=== PATIENT | female | born 1950 | race Caucasian/White ===

== ENCOUNTER → 2020-07-16 | Outpatient (CLI) | payer MEDICARE, BC | LOC: MC.RAD 10:45 | DX: Z12.31 Encounter for screening mammogram for malignant neoplasm of breast (principal); Z90.12 Acquired absence of left breast and nipple ==

== ENCOUNTER 2020-09-10 14:38 | Inpatient (IN) | payer MEDICARE, BC ==
[~2020-09-10] VITALS: Ht 175.3 cm; Wt 81.7 kg
[2020-09-10] VITALS (255 sets, daily range): BP systolic 64–99; BP diastolic 43–70; PULSE 56–119; TEMP 97.6–98; O2SAT 80–100
--- NOTE | 2020-09-10 14:55 | NUR ---
Patient to room from CT via wheelchair. Transfers self from wheelchair to bed. Gait slow and steady. Assist in changing into gown. Alert and oriented x4. Patient says that she does get dizzy with fast position changes. Skin pale. Oriented to room.
[2020-09-10] MEDS ORDERED: VASOTEC20 MG PO (14:59)
[2020-09-10] MEDS ORDERED: GLEEVEC400 MG PO (15:00)
[2020-09-10] MEDS ORDERED: ZOLOFT 50MG50 MG PO (15:00)
[2020-09-10] MEDS ORDERED: SYNTHROID0.175 MG PO (15:01)
[2020-09-10] MEDS ORDERED: COREG 3.123.125 MG/T PO (15:02)
[2020-09-10] MEDS ORDERED: COREG 6.256.25 MG/TA PO (15:03)
[2020-09-10] MEDS ORDERED: BUMEX0.5 MG PO (15:04)
[2020-09-10] MEDS ORDERED: CALCIUM 600-D 61 TAB PO (15:05)
[2020-09-10] MEDS ORDERED: KLOR-CON SPRIN10 MEQ PO (15:05)
[2020-09-10] MEDS ORDERED: PROLIA60 MG/ML SQ (15:07)
[2020-09-10] MEDS ORDERED: ALDACTONE 25MG25 M1 PO (15:08)
--- NOTE | 2020-09-10 15:30 | NUR ---
Patient to be transferred to [facility] Room 1. Report called to LUIS Whitlock. Echo is in room at this time performing echo.
--- NOTE | 2020-09-10 15:31 | NUR ---
Telephone report recieved from LUIS Echavarria
--- NOTE | 2020-09-10 15:55 | NUR ---
Patient assisted to [facility] 1 via wheelchair by this nurse. Patient assisted into bed. Care handed over to LUIS Whitlock.
--- NOTE | 2020-09-10 16:00 | NUR ---
AJ Echavarria in room, notified of BP: 77/62(67)
[2020-09-10 16:03] LABS: BASO % 0.4 % (0.0-2.0); EOS % 0.2 % (0-4.0); GRAN # 4.2 (1.4-6.5); GRAN % 79.6 % (42.2-75.2); LYMPH # 0.6 (1.2-3.4); LYMPH % 11.8 % (20.0-51.0); MEAN CELL VOLUME 106 fl (80.0-100.0); MEAN CORPUSCULAR HGB CONC 31 g/dl (33.0-37.0); MEAN PLATELET VOLUME 11.3 fl (7.4-10.4); MONO # 0.4 (0.1-0.6); MONO % 7.6 % (1.7-9.3); PLATELET COUNT 148 K/mm3 (130-400); RED BLOOD COUNT 2.22 M/mm3 (4.10-5.30); REDCELL DISTRIBUTION WIDTH-CV 15.4 % (11.5-14.5)
[2020-09-10 16:06] LABS: HEMATOCRIT 23.6 % (37.0-47.0); HEMOGLOBIN 7.4 g/dl (12.5-16.0); MEAN CORPUSCULAR HEMOGLOBIN 33 pg (27.0-31.0)
[2020-09-10 16:18] LABS: INR 1.6 (0.8-3.0); PROTHROMBIN TIME 18.5 SECONDS (9.7-12.8)
[2020-09-10 16:20] LABS: ALBUMIN 3.3 gm/dL (3.5-5.0); BILIRUBIN,TOTAL 0.8 mg/dL (0.0-1.0); C-REACTIVE PROTEIN 1.7 mg/dL (0.0-0.9); CALCIUM 9.5 mg/dL (8.4-10.2); CREATININE, serum 4.93 (0.52-1.25); MAGNESIUM 2.6 mg/dL (1.6-2.3); PHOSPHOROUS 5.7 mg/dL (2.5-4.5); TOTAL PROTEIN 5.6 gm/dL (6.4-8.2)
[2020-09-10 16:34] LABS: POTASSIUM 6.5 mmol/L (3.4-5.0)
--- NOTE | 2020-09-10 16:37 | NUR ---
Receive call from lab for a critical potassium level. Level called to AJ Echavarria.
[2020-09-10 16:40] LABS: ERYTHROCYTE SEDIMENTATION RATE 5 mm/hr (0-30)
--- NOTE | 2020-09-10 16:53 | NUR ---
MD Madie called for Dobutamine clarification orders, as AJ Echavarria informed me she, MD Madie wanted a Dobutamine gtt. MD Madie notifed of hypotension and AFib RVR. MD Madie also stated she does not want Heparin gtt d/t her hemoglobin, and does not want amiodarone, cardizem or dobutamine. MD Johnny in room with pt at 1700
--- NOTE | 2020-09-10 18:08 | NUR ---
MD Preeti here for central line placement. Consent obtained. TimeOut completed, all present in agreement.
--- NOTE | 2020-09-10 18:20 | NUR ---
Pt tolerated central line insertion well. MD Preeti gave the OK to begin using central line for vasopresors Pt's daughter Renee called in and updated - all questions answered - no concerns at this time
--- NOTE | 2020-09-10 18:25 | NUR ---
Lab called for repeat labs after IV insulin and Dextrose fluid
--- NOTE | 2020-09-10 18:47 | NUR ---
Lab re-called for lab draw and culture orders
--- NOTE | 2020-09-10 19:16 | NUR ---
Pt's primary contact: Renee Davis [phone]
--- NOTE | 2020-09-10 20:00 | NUR ---
Assessment complete. Pt is AXO X3, denies having any pain at this time. Breathing is even and unlabored on room air. SHe is resting quietly in the bed watching TV at this time and she denies further needs. Call light within reach.
[2020-09-10 20:22] LABS: RETIC # 0.03 M/mm3 (0.02-0.16); RETIC % 1.3 % (0.5-3.52)
[2020-09-10 20:32] LABS: CALCIUM 9.5 mg/dL (8.4-10.2); CREATININE, serum 4.88 (0.52-1.25); POTASSIUM 5.6 mmol/L (3.4-5.0)
[2020-09-10 20:34] LABS: IRON,SERUM 72 ug/dL (35-150)
[2020-09-10 20:43] LABS: TOTAL IRON BINDING CAPACITY 353 ug/dL (265-497)
[2020-09-10 22:15] LABS: COLLECTION METHOD CLEAN CATCH
[2020-09-10 22:31] LABS: CALCIUM 9.2 mg/dL (8.4-10.2); CREATININE, serum 4.88 (0.52-1.25)
[2020-09-10 22:35] LABS: POTASSIUM 5.8 mmol/L (3.4-5.0)
[2020-09-10 22:46] LABS: AMORPHOUS CRYSTAL Present /uL; MUCOUS Present /lpf; PH 5 (5-8); URINE APPEARANCE Turbid; URINE BACTERIA Rare /hpf; URINE BILIRUBIN Negative (NEGATIVE); URINE BLOOD 2+ (NEGATIVE); URINE COLOR Amber; URINE GLUCOSE Negative (NEGATIVE); URINE KETONE Negative (NEGATIVE); URINE LEUKOCYTE ESTERASE Negative (NEGATIVE); URINE NITRATE Negative (NEGATIVE); URINE PROTEIN(semi-quant) 2+ (NEGATIVE); URINE RBC 20-50 /hpf; URINE UROBILINOGEN Negative (NEGATIVE)
[2020-09-11] VITALS (1166 sets, daily range): BP systolic 70–119; BP diastolic 38–77; PULSE 64–126; TEMP 97–98; O2SAT 75–100
[2020-09-11 02:09] LABS: CALCIUM 9.8 mg/dL (8.4-10.2); CREATININE, serum 4.91 (0.52-1.25)
[2020-09-11 04:09] LABS: BASO % 0.1 % (0.0-2.0); EOS % 0.3 % (0-4.0); GRAN # 5.1 (1.4-6.5); GRAN % 75.6 % (42.2-75.2); LYMPH # 0.7 (1.2-3.4); LYMPH % 11.1 % (20.0-51.0); MEAN CELL VOLUME 103 fl (80.0-100.0); MEAN CORPUSCULAR HGB CONC 32 g/dl (33.0-37.0); MEAN PLATELET VOLUME 11.2 fl (7.4-10.4); MONO # 0.8 (0.1-0.6); MONO % 12.6 % (1.7-9.3); PLATELET COUNT 159 K/mm3 (130-400); RED BLOOD COUNT 2.48 M/mm3 (4.10-5.30); REDCELL DISTRIBUTION WIDTH-CV 15.5 % (11.5-14.5)
[2020-09-11 04:16] LABS: HEMATOCRIT 25.5 % (37.0-47.0); HEMOGLOBIN 8.1 g/dl (12.5-16.0); MEAN CORPUSCULAR HEMOGLOBIN 33 pg (27.0-31.0)
[2020-09-11 04:20] LABS: ALBUMIN 3.2 gm/dL (3.5-5.0); BILIRUBIN,TOTAL 1.1 mg/dL (0.0-1.0); CALCIUM 9.8 mg/dL (8.4-10.2); CREATININE, serum 4.91 (0.52-1.25); MAGNESIUM 2.4 mg/dL (1.6-2.3); PHOSPHOROUS 5.4 mg/dL (2.5-4.5); POTASSIUM 5.4 mmol/L (3.4-5.0); TOTAL PROTEIN 5.5 gm/dL (6.4-8.2)
--- NOTE | 2020-09-11 07:00 | NUR ---
BEDSIDE REPORT RECEIVED FROM LUIS APARICIO
--- NOTE | 2020-09-11 07:07 | NUR ---
Bedside shift report given to LUIS Hendricks.
--- NOTE | 2020-09-11 10:17 | NUR ---
Initial visit; Patient thanked Information Management Specialist for looking in on her and offering spiritual care.
--- NOTE | 2020-09-11 11:00 | NUR ---
WAITING ON ULTRASOUND TO HELP DETERMINE WHEN THE THORACENTESIS WILL BE.
--- NOTE | 2020-09-11 11:48 | NUR ---
Cher Mccollum LMSW and Sakina Modi RN met with patient in her room to discuss goals of care. Pt reports that her heart has been not functioning well for years and that she had known her kidneys weren't the greatest for several years but that when she got a new PCP, she was told that she had several fairly serious issues that would need to be dealt with. At this point she is telling us that she wants to be aggressive with her care to take care of things with her health. She did have some questions about dialysis but again at this point we don't know if dialysis will be needed or not. She is building a new house in [place] and the landscapers are coming today. It is almost done and she is very much looking forward to living there. She wants to spend time with her grandchildren and to be able to care for her 90yo mother. Teresa clearly states that she is not a medical expert and she trusts her care providers to tell her what is wrong and what to do about it. She reports that she does have advanced directives completed and she will contact her son to send them to Cher Mccollum LMSW. We talked about aggressive, vs supportive, vs comfort care as far as goals are concerned. At this point she is very much wanting to be aggressive in her care until there is a clear reason not to be and then she will rethink her goals. She does understand that the kidneys and heart have to work together to maintain a balance and that if one is not able to do it's job then the other organ has to work harder--when both aren't working well, then the problem grows. She will keep us advised but currently is wanting aggressive care.
--- NOTE | 2020-09-11 14:42 | NUR ---
ticket worker met with patient and Sakina Modi to complete initial intake as well as a Palliative Care visit. Patient stated that she lives alone and has a local daughter that is supportive. Patient's children are spread out among [place] and her elderly mother is planning to visit. Patient shares the past three years her family has had losses of her father and . Patient has been building a home in [place] and it is near completion. Patient states her primary care provider is Dr Banuelos and that she has advance directives. Patient will have her son email her advance directives to this heating and ventilating worker. Sakina shares options of care and patient states that at this time, she and her family wish for aggressive treatment to make her better. We discussed dialysis as patient is being evaluated for the possibility. Case management will continue to follow and assist with securing a safe discharge plan.
[2020-09-11 15:01] LABS: PLEURAL FLUID RBC 2000 /mm3 (0-0); PLEURAL FLUID WBC 658 /mm3
[2020-09-11 15:22] LABS: GLUCOSE,PLEURAL FLUID 85 mg/dL
[2020-09-11 15:25] LABS: PLEURAL FLUID APPEARANCE HAZY; PLEURAL FLUID COLOR YELLOW
--- NOTE | 2020-09-11 15:30 | NUR ---
THORACENTESIS COMPLETE. PATIENT EXPERIENCED N/V POST THORA. ZOFRAN GIVEN. SHE IS MUCH BETTER NOW. WILL CONTINUE TO MONITOR.
--- NOTE | 2020-09-11 16:00 | NUR ---
WEANING DOWN LEVOPHED TODAY. STILL MAKING MINIMAL URINE OUTPUT.
--- NOTE | 2020-09-11 17:50 | NUR ---
PASCUAL AVENDANO RECEIVED FROM DR. MAYNARD FOR ABDOMINAL PAIN.
--- NOTE | 2020-09-11 19:00 | NUR ---
BEDSIDE REPORT GIVEN TO LUIS APARICIO
--- NOTE | 2020-09-11 20:00 | NUR ---
Assessment complete. Pt is AXO X3, denies having any pain at this time. Breathing is even and unlabored on room air. Pt is sitting up in the bed working on eating a sandwich at this time and she denies further needs. Call light within reach.
[2020-09-11 22:28] LABS: URIC ACID 14.2 mg/dL (2.5-6.2)
[2020-09-12] VITALS (870 sets, daily range): BP systolic 65–140; BP diastolic 41–98; PULSE 68–100; TEMP 97.6–98.2; O2SAT 70–100
--- NOTE | 2020-09-12 07:23 | NUR ---
Bedside shift report given to LUIS Lyle.
--- NOTE | 2020-09-12 08:00 | NUR ---
Report recieved from Kevin RN, all questions answered. Patient found sleeping in bed, repondeds to verbal stimuli. Patient oriented x4. Heart sounds irregular, lung sounds diminished, bowel sounds audible. Abdomen distended. Patient denies any pain or nausea at this time. Reports breathing feels much better. IV drips going to left IJ without difficulty. Pérez in place draining korina urine. Vital signs stable at this time. All safety maintained, will continue to monitor.
[2020-09-12 08:08] LABS: BASO % 0.2 % (0.0-2.0); EOS # 0.1 (0.0-0.7); EOS % 1.2 % (0-4.0); GRAN # 6.9 (1.4-6.5); GRAN % 81.8 % (42.2-75.2); LYMPH # 0.6 (1.2-3.4); LYMPH % 7.1 % (20.0-51.0); MEAN CELL VOLUME 101 fl (80.0-100.0); MEAN CORPUSCULAR HGB CONC 33 g/dl (33.0-37.0); MEAN PLATELET VOLUME 11.2 fl (7.4-10.4); MONO # 0.8 (0.1-0.6); MONO % 9.6 % (1.7-9.3); PLATELET COUNT 158 K/mm3 (130-400); RED BLOOD COUNT 3.13 M/mm3 (4.10-5.30); REDCELL DISTRIBUTION WIDTH-CV 15.3 % (11.5-14.5)
--- NOTE | 2020-09-12 08:15 | NUR ---
entry level automotive technician at bedside to perform paracentesis. Consent signed by patient. Will continue to monitor.
[2020-09-12 08:17] LABS: CALCIUM 8.1 mg/dL (8.4-10.2); CREATININE, serum 4.93 (0.52-1.25); MAGNESIUM 2.1 mg/dL (1.6-2.3); PHOSPHOROUS 5.3 mg/dL (2.5-4.5); POTASSIUM 4.2 mmol/L (3.4-5.0)
[2020-09-12 08:26] LABS: HEMATOCRIT 31.6 % (37.0-47.0); HEMOGLOBIN 10.3 g/dl (12.5-16.0); MEAN CORPUSCULAR HEMOGLOBIN 33 pg (27.0-31.0)
--- NOTE | 2020-09-12 09:57 | NUR ---
I went down to talk with patient again today. She reports that she is feeling better after having fluid removed from her chest and abdomen but still feeling effects of paracentesis which was just done less than 30 minutes ago. She reports that her phone needs to be charged and then she plans on talking with her family. We have not recieved her DPOA-HC but she reports that they will send it to us. She continues to maintain a very positive attitude about her situation--that everything will work out. She did ask that if she made her self a DNR if her family could then change that. I reinforced to her that if that is her decision, then we would expect that her family would be supportive of her decision and we would not expect them to change her status. Rather we would be turning to them if she couldn't make her own decision regarding other actions that might be available to her vs keeping her comfortable and allowing nature to take its course. She reinforced to me that she plans to talk with her family later today about this kind of thing.
[2020-09-12 10:12] LABS: PERITONEAL FLUID RBC 52000 /mm3 (0-0)
--- NOTE | 2020-09-12 12:00 | NUR ---
Paracentisis site clean dry intact at this time. No complaints will continue to monitor.
--- NOTE | 2020-09-12 16:26 | NUR ---
Plastic Maker contacted patient's daughter, Renee and left a message.
[2020-09-12 18:18] LABS: CORTISOL, AM (0800) 16 ug/dL (3-20)
--- NOTE | 2020-09-12 19:25 | NUR ---
RECEIVED REPORT FROM LUIS HUGHES. PATIENT RESTING IN BED WITH EYES OPEN. SEE GTT TITRATION FLOWSHEET. LEONARD CATHETER PATENT AND DRAINING TO GRAVITY. CALL LIGHT WITHIN REACH. VSS.
--- NOTE | 2020-09-12 19:25 | NUR ---
Report given to Brenda SMITH.
[2020-09-13] VITALS (912 sets, daily range): BP systolic 82–133; BP diastolic 48–64; PULSE 80–92; TEMP 97.8; O2SAT 74–100
[2020-09-13 07:16] LABS: MEAN CELL VOLUME 99 fl (80.0-100.0); MEAN CORPUSCULAR HGB CONC 34 g/dl (33.0-37.0); MEAN PLATELET VOLUME 11.4 fl (7.4-10.4); PLATELET COUNT 124 K/mm3 (130-400); RED BLOOD COUNT 2.53 M/mm3 (4.10-5.30); REDCELL DISTRIBUTION WIDTH-CV 15.1 % (11.5-14.5)
[2020-09-13 07:23] LABS: ALBUMIN 2.4 gm/dL (3.5-5.0); BILIRUBIN,TOTAL 0.6 mg/dL (0.0-1.0); CALCIUM 7.6 mg/dL (8.4-10.2); CREATININE, serum 4.07 (0.52-1.25); HEMATOCRIT 25.1 % (37.0-47.0); HEMOGLOBIN 8.5 g/dl (12.5-16.0); MEAN CORPUSCULAR HEMOGLOBIN 34 pg (27.0-31.0); POTASSIUM 3.1 mmol/L (3.4-5.0); TOTAL PROTEIN 4.3 gm/dL (6.4-8.2)
[2020-09-13 07:46] LABS: BAND 10 % (0-10); NEUTROPHILS 87 % (42.0-75.2); OVALOCYTES 2+; PLATELET ESTIMATE NORMAL (NORMAL); SCHISTOCYTES 1+
--- NOTE | 2020-09-13 21:25 | NUR ---
Assessment complete and charted. TLC to left IJ drainage present. Sterile dressing change complete. Patient returned to bed. Denies needs. Call light in reach.
[2020-09-14] VITALS (575 sets, daily range): BP systolic 91–132; BP diastolic 43–74; PULSE 79–93; TEMP 98–98.2; O2SAT 74–100
--- NOTE | 2020-09-14 00:13 | NUR ---
Assessment complete and charted at this time. Denies pain. Denies needs. Call light in reach.
--- NOTE | 2020-09-14 04:56 | NUR ---
Assessment complete and charted. Denies needs at this time. Call light in reach.
--- NOTE | 2020-09-14 06:36 | NUR ---
Patient had uneventful night. Remains on dobutamine and amio gtts. Up to chair this AM. Bath complete. Call light in reach.
--- NOTE | 2020-09-14 07:14 | NUR ---
Report given to LUIS Briggs
[2020-09-14 07:15] LABS: MEAN CELL VOLUME 101 fl (80.0-100.0); MEAN CORPUSCULAR HGB CONC 33 g/dl (33.0-37.0); MEAN PLATELET VOLUME 10.7 fl (7.4-10.4); PLATELET COUNT 108 K/mm3 (130-400); RED BLOOD COUNT 2.26 M/mm3 (4.10-5.30); REDCELL DISTRIBUTION WIDTH-CV 15.3 % (11.5-14.5)
[2020-09-14 07:27] LABS: ALBUMIN 2.6 gm/dL (3.5-5.0); BILIRUBIN,TOTAL 0.6 mg/dL (0.0-1.0); CALCIUM 7.6 mg/dL (8.4-10.2); CREATININE, serum 3.43 (0.52-1.25); TOTAL PROTEIN 4.6 gm/dL (6.4-8.2)
[2020-09-14 07:35] LABS: HEMATOCRIT 22.8 % (37.0-47.0); HEMOGLOBIN 7.5 g/dl (12.5-16.0); MEAN CORPUSCULAR HEMOGLOBIN 33 pg (27.0-31.0)
[2020-09-14 07:45] LABS: ANISOCYTOSIS 1+; BAND 5 % (0-10); LYMPHOCYTE 3 % (20.0-51.0); NEUTROPHILS 92 % (42.0-75.2); PLATELET ESTIMATE DECREASED (NORMAL)
[2020-09-14 07:46] LABS: OVALOCYTES 2+; SCHISTOCYTES 1+
--- NOTE | 2020-09-14 19:14 | NUR ---
Report given to LUIS Brown. Care relinquished at this time.
--- NOTE | 2020-09-14 20:00 | NUR ---
Assessment complete. Pt is AXO X3, denies having any pain at this time. Breathing is even and unlabored on room air. Pt helped back to the bed from the recliner with SBA. She is resting quietly in the bed at this time and she denies further needs. Call light within reach.
[2020-09-15] VITALS (562 sets, daily range): BP systolic 96–137; BP diastolic 42–91; PULSE 82–96; TEMP 97.4–98.9; O2SAT 79–99
--- NOTE | 2020-09-15 07:00 | NUR ---
RECEIVED REPORT FROM LUIS APARICIO. PT SLEEPING. CALL LIGHT WITHIN REACH. VSS. FC PATENT AND DRAINING TO GRAVITY.
[2020-09-15 07:39] LABS: CALCIUM 7.4 mg/dL (8.4-10.2); CREATININE, serum 2.71 (0.52-1.25); POTASSIUM 3.2 mmol/L (3.4-5.0)
--- NOTE | 2020-09-15 07:49 | NUR ---
Bedside shift report given to LUIS Valiente.
--- NOTE | 2020-09-15 08:50 | NUR ---
DR RUBIN AT BEDSIDE FOR ASSESSMENT. NEW ORDERS RECEIVED.
[2020-09-15 09:24] LABS: ALBUMIN 2.3 gm/dL (3.5-5.0); TOTAL PROTEIN 4.2 gm/dL (6.4-8.2)
[2020-09-15 09:38] LABS: BILIRUBIN UNCONJUGATED 0.2 mg/dL (0.0-1.1); BILIRUBIN,DIRECT 0.2 mg/dL (0.0-0.4); BILIRUBIN,TOTAL 0.5 mg/dL (0.0-1.0)
--- NOTE | 2020-09-15 10:45 | NUR ---
DR BARTON AT BEDSIDE FOR ASSESSMENT AND DISCUSSING POC WITH PT. DISCUSSED WITH PHYSICAIN ABOUT FC AND CENTRAL LINE DC. PHYSICIAN STATES IF PT HAS TO PERIPHRAL IV ACCESSES THEN OK TO DC CENTRAL LINE. AND PHYSICIAN STATES TO ASK NEPHROLOGY ABOUT DC FC. SPOKE WITH LUIS SINGH WITH DR LUIS AND SHE STATES WILL SPEAK TO DR LUIS AND GET BACK.
[2020-09-15] MEDS ORDERED: EVISTA 60MG60 MG/TAB PO ×2 (10:53→10:54)
[2020-09-15 12:15] LABS: MEAN CELL VOLUME 99 fl (80.0-100.0); MEAN CORPUSCULAR HGB CONC 33 g/dl (33.0-37.0); MEAN PLATELET VOLUME 10.8 fl (7.4-10.4); PLATELET COUNT 99 K/mm3 (130-400); REDCELL DISTRIBUTION WIDTH-CV 15.7 % (11.5-14.5)
[2020-09-15 12:19] LABS: HEMATOCRIT 20.8 % (37.0-47.0); HEMOGLOBIN 6.9 g/dl (12.5-16.0); MEAN CORPUSCULAR HEMOGLOBIN 33 pg (27.0-31.0)
[2020-09-15 12:36] LABS: BAND 2 % (0-10); LYMPHOCYTE 2 % (20.0-51.0); NEUTROPHILS 94 % (42.0-75.2); PLATELET ESTIMATE DECREASED (NORMAL)
[2020-09-15 12:37] LABS: HYPOCHROMIA 1+; OVALOCYTES 2+; SCHISTOCYTES 2+
--- NOTE | 2020-09-15 12:46 | NUR ---
REPORT GIVEN TO LUIS SAVAGE ON MEDICAL. PT TO TRANSFER TO [facility] VIA ON RA. ALL PERSONAL BELONGINGS SENT WITH PT.
--- NOTE | 2020-09-15 13:38 | NUR ---
Assistant Professor Of History met with patient to follow up on DPOA-HC and discharge plan. Patient states her son in law, J Luis (ph#[phone]) should have faxed it in. SW also discussed home health services with patient who is agreeable. SW provided Medicare.gov list of agencies and patient selected [facility]. DIANA contacted Santa at [facility] and faxed referral. DIANA then contacted J Luis and provided case management fax. J Luis states he will fax over a copy.
--- NOTE | 2020-09-15 13:50 | NUR ---
PT TRANSFERRED TO 318 AT THIS TIME
--- NOTE | 2020-09-15 14:36 | NUR ---
PT TO FLOOR @1400 FROM ICU. REPORT FROM CARIDAD SMITH.
[2020-09-15 21:53] LABS: ADRENOCORTICOTROPIC HORMONE 22 pg/mL (5-27)
[2020-09-16 03:46] VITALS: BP 106/53; PULSE 87; TEMP 98.2
--- NOTE | 2020-09-16 05:07 | NUR ---
PATIENT HAD DIFFICULTY GETTING TO SLEEP LAST NIGHT. PRN MELATONIN ADMINISTERED BUT DID NOT HELP PATIENT GET TO SLEEP. PATIENT STATED SHE HAS JUST HAD TROUBLE SLEEPING THE LAST COUPLE NIGHTS. PATIENT CALM, COOPERATIVE, AND VERY FRIENDLY. NO NEW ISSUES NOTED OR REPORTED BY PATIENT.
[2020-09-16 07:10] LABS: MEAN CELL VOLUME 101 fl (80.0-100.0); MEAN CORPUSCULAR HGB CONC 33 g/dl (33.0-37.0); MEAN PLATELET VOLUME 11.3 fl (7.4-10.4); PLATELET COUNT 93 K/mm3 (130-400); RED BLOOD COUNT 2.28 M/mm3 (4.10-5.30)
[2020-09-16 07:14] LABS: HEMOGLOBIN 7.5 g/dl (12.5-16.0); MEAN CORPUSCULAR HEMOGLOBIN 33 pg (27.0-31.0)
[2020-09-16 07:17] LABS: ALBUMIN 2.7 gm/dL (3.5-5.0); BILIRUBIN,TOTAL 0.5 mg/dL (0.0-1.0); CALCIUM 7.7 mg/dL (8.4-10.2); CREATININE, serum 2.34 (0.52-1.25); POTASSIUM 3.2 mmol/L (3.4-5.0)
[2020-09-16 07:36] VITALS: BP 109/60; PULSE 89; TEMP 98.2
[2020-09-16 07:52] LABS: BAND 1 % (0-10); LYMPHOCYTE 5 % (20.0-51.0); NEUTROPHILS 93 % (42.0-75.2); NUCLEATED RED BLOOD CELL 1 (0-6); OVALOCYTES 1+; PLATELET ESTIMATE DECREASED (NORMAL); SCHISTOCYTES 1+
--- NOTE | 2020-09-16 08:00 | NUR ---
PATIENT IS ALERT AND ORIENTED X3. VSS. NO COMPLAINTS OF PAIN OR N/V AT THIS TIME. MORNING MEDS ADMINISTERED. CENTRAL LINE DRESSING CHANGED- PATIENT REPORTED TAKING A 45 MINUTE SHOWER AFTER THE LAST ONE WAS REPLACED AND SEROSANGUINEOUS DRAINAGE AT THE SITE. LEONARD CATHETER D/C PROVIDER ORDERS. URINE IS NOTED TO BE BLOOD TINGED. PATIENT HANDLES BOTH PROCEDURES WELL. HEAD TO TOE ASSESSMENT COMPLETED. LUNG SOUNDS CLEAR. HEART SOUNDS REGULAR AND NORMAL. BOWEL SOUNDS ACTIVE IN ALL FOUR QUADRANTS. ABDOMEN SOFT. ALL PULSES ARE READILY PALPABLE. NO PITTING EDEMA NOTED. HOWEVER, PATIENT STATES THAT SHE FEELS IF HER LEGS FEEL A LITTLE MORE SWOLLEN THAN USUAL. PATIENT DENIES ANY PAIN OR TENDERNESS IN HER CALVES, THERE IS NO REDNESS OR ABNORMAL WARMTH IN HER CALVES. WILL CONTINUE TO MONITOR. BED IS LEFT IN THE LOWEST POSITION AND CALL LIGHT WITHIN REACH.
--- NOTE | 2020-09-16 08:00 | NUR ---
ASSESSED PATIENT WITH STUDENT, SEE CAPSTONE STUDENT CHARTING
--- NOTE | 2020-09-16 09:31 | NUR ---
Met with patient this morning after he shower. She reports that she is feeling much improved and is hopeful to be able to get to a point when she can go home. She is planning on following up with cancer physician in [place]--as her daughter lives there and is familiar with the facility. That is in her future but currently she just wants to be at home and watch her yard come together. She is still wanting to seek active treatment. I do not see a DPOA-HC on her chart yet, but it was to be faxed.
[2020-09-16 11:03] VITALS: BP 103/57; PULSE 85; TEMP 97.7
--- NOTE | 2020-09-16 13:48 | NUR ---
Follow-up visit; Patient doing well, she and Manager Reliability had a nice visit and Manager Reliability wished her well and offered God's blessings.
--- NOTE | 2020-09-16 14:37 | NUR ---
PATIENT CALLED OUT REPORTING LEFT IJ DRESSING IS SATURATED AGAIN. NURSING INQUIRED ABOUT DRAINAGE WITH AIVS WHO IS NOW AT BEDSIDE TO ASSESS CENTRAL LINE.
[2020-09-16 16:29] VITALS: BP 105/54; PULSE 90; TEMP 98.4
[2020-09-16 19:17] VITALS: BP 89/57; PULSE 95; TEMP 98.2
[2020-09-17 03:09] VITALS: BP 93/44; PULSE 88; TEMP 97.8
--- NOTE | 2020-09-17 05:46 | NUR ---
PATIENT REPORTED SHE SLEPT WELL FOR SEVERAL HOURS THROUGHOUT THE NIGHT. GI CONSULTED DUE TO STOOL OCCULT RESULTS. NO NEW ISSUES NOTED OR REPORTED BY PATIENT.
--- NOTE | 2020-09-17 07:52 | NUR ---
Patient resting in bed at this time. Patient denies any pain or discomfort. Patient denies any further needs. Will continue to monitor. Call light within reach.
[2020-09-17 08:03] LABS: EOS # 0.2 (0.0-0.7); EOS % 3.4 % (0-4.0); GRAN # 4.5 (1.4-6.5); GRAN % 72.4 % (42.2-75.2); LYMPH # 0.8 (1.2-3.4); LYMPH % 12.1 % (20.0-51.0); MEAN CELL VOLUME 103 fl (80.0-100.0); MEAN CORPUSCULAR HGB CONC 32 g/dl (33.0-37.0); MEAN PLATELET VOLUME 10.2 fl (7.4-10.4); MONO # 0.7 (0.1-0.6); MONO % 11.9 % (1.7-9.3); PLATELET COUNT 111 K/mm3 (130-400); RED BLOOD COUNT 2.33 M/mm3 (4.10-5.30); REDCELL DISTRIBUTION WIDTH-CV 16.1 % (11.5-14.5)
[2020-09-17 08:07] VITALS: BP 120/59; PULSE 88; TEMP 98.4
[2020-09-17 08:12] LABS: HEMOGLOBIN 7.6 g/dl (12.5-16.0); MEAN CORPUSCULAR HEMOGLOBIN 33 pg (27.0-31.0)
[2020-09-17 08:15] LABS: CALCIUM 7.7 mg/dL (8.4-10.2); CREATININE, serum 2.28 (0.52-1.25); POTASSIUM 3.1 mmol/L (3.4-5.0)
[2020-09-17 11:53] VITALS: BP 95/59; PULSE 91; TEMP 97.5
--- NOTE | 2020-09-17 13:20 | NUR ---
First visit from the home care assistant. No needs right now.
[2020-09-17] MEDS ORDERED: K-TAB20 PO (15:57)
[2020-09-17] MEDS ORDERED: ASPIRIN E.C. 8181 MG PO (16:12)
[2020-09-17] MEDS ORDERED: ZYLOPRIM 300MG300 MG PO (16:16)
[2020-09-17] MEDS ORDERED: PACERONE400 MG PO (16:17)
--- NOTE | 2020-09-17 16:34 | NUR ---
Cow Buyer contacted Santa at [facility] and faxed discharge orders and discharge summary.
[2020-09-17 17:00] VITALS: BP 99/61; PULSE 88; TEMP 98.2
--- NOTE | 2020-09-17 18:46 | NUR ---
Patient deemed fit for discharge. Education given patient denies any questions or concerns. IV DC'D with catheter intact and no signs of phlebitis. Patient denies any pain or discomfort. Patient's vitals stable; BP 99/61, Pulse 88, Resp 18, SPO2 97%, and Temp 98.2. Patient escorted from building by [facility] staff.
== END 2020-09-17 17:30 | disposition home health service (06) | DRG 682 ==
LOC: MEDICAL 14:38 → ICU 16:00 → MEDICAL 16:08 → ICU 09-15 11:20 → MEDICAL 09-15 14:06
PROVIDERS: Internal Medicine; Internal Medicine Adult Congenital Heart Disease; Internal Medicine Critical Care Medicine; Internal Medicine Nephrology; Internal Medicine Pulmonary Disease; Physician Assistant; ADMIT Hospitalist
PROC: 0W993ZZ Drainage of Right Pleural Cavity, Percutaneous Approach (ICD-10-PCS; principal; 2020-09-10)
PROC: 4B02XTZ Measurement of Cardiac Defibrillator, External Approach (ICD-10-PCS; 2020-09-10)
PROC: 05HQ33Z Insertion of Infusion Device into Left External Jugular Vein, Percutaneous Approach (ICD-10-PCS; 2020-09-10)
PROC: 0W9G3ZZ Drainage of Peritoneal Cavity, Percutaneous Approach (ICD-10-PCS; 2020-09-12)
DX: N17.9 Acute kidney failure, unspecified (principal); I50.23 Acute on chronic systolic (congestive) heart failure; R57.9 Shock, unspecified; R18.8 Other ascites; I42.8 Other cardiomyopathies; J90 Pleural effusion, not elsewhere classified; E87.2 Acidosis; E87.1 Hypo-osmolality and hyponatremia; E87.5 Hyperkalemia; K52.9 Noninfective gastroenteritis and colitis, unspecified; N18.30 Chronic kidney disease, stage 3 unspecified; E83.39 Other disorders of phosphorus metabolism; E83.41 Hypermagnesemia; D53.9 Nutritional anemia, unspecified; N83.9 Noninflammatory disorder of ovary, fallopian tube and broad ligament, unspecified; K76.1 Chronic passive congestion of liver; E03.9 Hypothyroidism, unspecified; F32.9 Major depressive disorder, single episode, unspecified; M81.0 Age-related osteoporosis without current pathological fracture; K64.9 Unspecified hemorrhoids; Z85.850 Personal history of malignant neoplasm of thyroid; Z85.3 Personal history of malignant neoplasm of breast; Z79.82 Long term (current) use of aspirin; Z85.6 Personal history of leukemia; Z79.890 Hormone replacement therapy; Z92.21 Personal history of antineoplastic chemotherapy; Z60.2 Problems related to living alone; I48.0 Paroxysmal atrial fibrillation; Z45.02 Encounter for adjustment and management of automatic implantable cardiac defibrillator; T45.1X5A Adverse effect of antineoplastic and immunosuppressive drugs, initial encounter; I49.1 Atrial premature depolarization; I08.1 Rheumatic disorders of both mitral and tricuspid valves; E87.6 Hypokalemia
CPT/HCPCS: 99232-AI; 99233-AI; 99239; C9113; J0282; J0610; J0692; J1250; J1720; J1815; J2405; J3475; J7030; J7060; J7120; P9040

== ENCOUNTER → 2020-09-10 | Outpatient (CLI) | payer MEDICARE, BC ==
[~2020-09-10] MED LIST: ALDACTONE 25MG25 M1 PO; ASPIRIN E.C. 8181 MG PO; BUMEX0.5 MG PO; CALCIUM 600-D 61 TAB PO; COREG 3.123.125 MG/T PO; COREG 6.256.25 MG/TA PO; EVISTA 60MG60 MG/TAB PO; GLEEVEC400 MG PO; K-TAB20 PO; KLOR-CON SPRIN10 MEQ PO; PACERONE400 MG PO; PROLIA60 MG/ML SQ; SYNTHROID0.175 MG PO; VASOTEC20 MG PO; ZOLOFT 50MG50 MG PO; ZYLOPRIM 300MG300 MG PO
== END ==
LOC: COL.RAD 13:01
DX: C92.11 Chronic myeloid leukemia, BCR/ABL-positive, in remission (principal); I50.9 Heart failure, unspecified; J90 Pleural effusion, not elsewhere classified; R60.1 Generalized edema; N83.8 Other noninflammatory disorders of ovary, fallopian tube and broad ligament

== ENCOUNTER 2020-09-20 13:17 | Inpatient (IN) | payer MEDICARE, BC ==
[2020-09-20] VITALS (362 sets, daily range): BP systolic 87–107; BP diastolic 58–67; PULSE 78–90; TEMP 96.2–97.5; O2SAT 41–100
[~2020-09-20] VITALS: Ht 177.8 cm; Wt 86.9 kg
--- NOTE | 2020-09-20 13:23 | NUR ---
RECEIVED REPORT FROM LUIS WORRELL IN ER AT [facility]. AWAITING ARRIVAL OF PT TO ICU 1.
--- NOTE | 2020-09-20 13:45 | NUR ---
PT ARRIVED TO ICU 1. PT ON 4L VIA NC AND LEVOPHED GTT. SEE GTT FLOWSHEET. PT VERY CLAMMY AND PALE. ASSISTED TO ICU BED. PLACED ON BEDSIDE CONTINUOUS MONITOR. HR 90, BP 87/58. PERSONAL BELONGINGS WITH PT ARE BLANKET AND PILLOW/PILLOWCASE THAT IS WHITE. FC PATENT AND DRAINING TO GRAVITY. PT DOES AROUSE AND ANWER QUESTIONS BUT DOES APPEAR VERY DROWSY AND IS MOUTH BREATHING WITH RR 22. CALL LIGHT WITHIN REACH.
--- NOTE | 2020-09-20 14:00 | NUR ---
NOTIFIED DR INGRAM OF PT'S ARRIVAL. NOTIFIED PHYSICIAN OF CURRENT VS, LEVOPHED GTT, FSBS WAS 83 AND WAS 109 WHEN LEFT OTHER FACILITY, AND DISCUSSED PT'S OVERALL VIEW AT THIS TIME. NEW ORDERS. PHYSICIAN STATES OK TO CHANGE IVF AT THIS TIME TO HELP BLOOD SUGARS OUT UNTIL STABILIZED. ALL DEPARTMENTS AWARE OF THEIR ORDERS. PT STILL AROUSES BUT IS DROWSY WELL. VSS.
--- NOTE | 2020-09-20 14:29 | NUR ---
DR INGRAM AT BEDSIDE FOR ASSESSMENT AND TO REVIEW PAPERWORK.
[2020-09-20 14:36] LABS: MEAN CELL VOLUME 115 fl (80.0-100.0); MEAN CORPUSCULAR HGB CONC 29 g/dl (33.0-37.0); MEAN PLATELET VOLUME 12.3 fl (7.4-10.4); PLATELET COUNT 116 K/mm3 (130-400); RED BLOOD COUNT 2.25 M/mm3 (4.10-5.30); REDCELL DISTRIBUTION WIDTH-CV 16.7 % (11.5-14.5)
[2020-09-20 14:37] LABS: HEMATOCRIT 25.8 % (37.0-47.0); HEMOGLOBIN 7.5 g/dl (12.5-16.0); MEAN CORPUSCULAR HEMOGLOBIN 33 pg (27.0-31.0)
[2020-09-20 14:40] LABS: AMORPHOUS CRYSTAL Present /uL; COLLECTION METHOD CLEAN CATCH; MUCOUS Present /lpf; PH 5 (5-8); URINE APPEARANCE Turbid; URINE BACTERIA Occasional /hpf; URINE BILIRUBIN Negative (NEGATIVE); URINE BLOOD 1+ (NEGATIVE); URINE COLOR Amber; URINE GLUCOSE 1+ (NEGATIVE); URINE KETONE Negative (NEGATIVE); URINE LEUKOCYTE ESTERASE Negative (NEGATIVE); URINE NITRATE Negative (NEGATIVE); URINE PROTEIN(semi-quant) 3+ (NEGATIVE); URINE RBC None Seen /hpf; URINE UROBILINOGEN Negative (NEGATIVE)
[2020-09-20 14:42] LABS: ALBUMIN 3.6 gm/dL (3.5-5.0); BILIRUBIN,TOTAL 4.2 mg/dL (0.0-1.0); CALCIUM 7.3 mg/dL (8.4-10.2); CREATININE, serum 3.79 (0.52-1.25)
[2020-09-20 14:46] LABS: POTASSIUM 6.1 mmol/L (3.4-5.0)
[2020-09-20 14:53] LABS: ARTERIAL BLD GAS O2 SATURATION 90.7 % (92-100); ARTERIAL BLD GAS TCO2 CT 11.4; ARTERIAL BLOOD GAS HCO3 10.5 meq/L (22-26); ARTERIAL BLOOD GAS PCO2 30.9 mmHg (35-45); ARTERIAL BLOOD GAS PO2 75.7 mmHg (80-100); ARTERIAL BLOOD GAS pH 7.15 (7.35-7.45)
[2020-09-20 14:55] LABS: ANISOCYTOSIS 1+; HYPOCHROMIA 1+; LYMPHOCYTE 4 % (20.0-51.0); NEUTROPHILS 89 % (42.0-75.2); PLATELET ESTIMATE DECREASED (NORMAL)
[2020-09-20 14:57] LABS: TROPONIN-I 0.385 ng/mL (0.000-0.035)
--- NOTE | 2020-09-20 14:58 | NUR ---
DR INGRAM NOTIFIED OF K LEVEL, CO2, ABG, AND CURRENT VS. PHYSICIAN DISCUSSES CODE STATUS WITH PT.
--- NOTE | 2020-09-20 16:12 | NUR ---
PT INTUBATED SUCCESSFULLY BY KELLY OLSON WITH ETT 7.5 21 AT THE TEETH WITH COLOR CHANGE NOTED. VSS. TOLERATED WELL. PARACHUTE TAPER PERFORMED RT RADIAL ART LINE X2 STICKS THEN SUCCESSFUL. AT 1651 DR RODRIGUEZ SUCCESSFUL WITH LT FEMORAL CENTRAL LINE. 14FR OGT PLACED AT 50 CM. CXR ORDERED.
--- NOTE | 2020-09-20 16:29 | NUR ---
DR INGRAM NOTIFIED THAT PT IS STILL FIGHTING VENT AND GAGGING AGAINST ETT AFTER INCREASING FENT GTT. NEW ORDEERS TO START PROPOFOL GTT SINCE VSS.
--- NOTE | 2020-09-20 17:00 | NUR ---
DR INGRAM AND AISHA, RN WITH DR LUIS AWARE OF NEW K IS 5.8. NEW ORDERS RECEIVED. SEE MAR.
--- NOTE | 2020-09-20 17:28 | NUR ---
POST INTUBATION ABG RESULTS OBTAINED. RT ADJUSTS VENT SETTINGS TO: TV 500, PEEP 5, RR 20, FIO2 35%.
[2020-09-20 17:30] LABS: ARTERIAL BLD GAS O2 SATURATION 99.1 % (92-100); ARTERIAL BLD GAS TCO2 CT 13.8; ARTERIAL BLOOD GAS BASE EXCESS -12.7 (-2-2); ARTERIAL BLOOD GAS HCO3 12.9 meq/L (22-26); ARTERIAL BLOOD GAS PCO2 28.3 mmHg (35-45); ARTERIAL BLOOD GAS pH 7.28 (7.35-7.45)
[2020-09-20 17:31] LABS: ARTERIAL BLOOD GAS PO2 174.7 mmHg (80-100)
--- NOTE | 2020-09-20 18:00 | NUR ---
DR MARION AT BEDSIDE FOR ASSESSMENT AND DISCUSSING POC WITH SUKUMAR, PT'S DAUGHTER. PHYSICIAN NOTES DARK BLOOD TINGE COLOR IN OGT TUBING. UPDATED PHYSICIAN ON LABS AND CURRENT VENT SETTINGS. PHYSICAIN REQUESTS RR INCREASED TO 22. RT MADE AWARE. AND REQUESTS ABG IN AN HOUR. RT AWARE OF ORDERS.
--- NOTE | 2020-09-20 18:18 | NUR ---
ATTEMPTED TO PAGE DR CARVER. AWAITING RESPONSE.
--- NOTE | 2020-09-20 18:48 | NUR ---
SECOND PAGE TO DR CARVER ABOUT CONSULT. RESPONDED AND SPOKE TO DR MARION. DR MARION STATES TO INCREASE DOBUTAMINE GTT TO 7.5 MCG/KG/MIN. SEE GTT FLOWSHEET.
--- NOTE | 2020-09-20 19:00 | NUR ---
Received bedside report from LUIS Valiente. Patient is alert but drowsy, following verbal commands. Denies presence of pain or discomfort by shaking head no. Patient remains on ventilator, tolerating well. All drips confirmed at bedside. Daughter, Renee, is within room. All questions answered.
--- NOTE | 2020-09-20 19:00 | NUR ---
PER DR MARION, IF NEXT ABG PH IS GREATER THAN 3.5 THEN TO DECREASE BICARB GTT TO 75ML/HR.
[2020-09-20 19:19] LABS: ARTERIAL BLD GAS O2 SATURATION 99.3 % (92-100); ARTERIAL BLD GAS TCO2 CT 12.7; ARTERIAL BLOOD GAS BASE EXCESS -11.2 (-2-2); ARTERIAL BLOOD GAS HCO3 12.2 meq/L (22-26); ARTERIAL BLOOD GAS pH 7.43 (7.35-7.45)
[2020-09-20 19:20] LABS: ARTERIAL BLOOD GAS PCO2 18.9 mmHg (35-45); ARTERIAL BLOOD GAS PO2 155.1 mmHg (80-100)
--- NOTE | 2020-09-20 19:45 | NUR ---
Dr. Shook at bedside speaking with patient's daughter, Renee.
--- NOTE | 2020-09-20 20:52 | NUR ---
Patient departs with [facility] for transport to [facility]. All vitals stable. Daughter, Renee, at bedside. Aware of patient's plan of care. All questions answered. All belongings sent with Renee, except for Gleevec medication. Daughter states this medication is uncommon in hospitals per her experience, and would like it to travel with patient due to limitied visiting hours at receiving hospital. Care transferred at this time.
--- NOTE | 2020-09-20 20:57 | NUR ---
Called report to [facility]. Spoke with receiving RN, Nunu. All questions answered. Call back number provided.
== END 2020-09-20 20:52 | disposition short-term general hospital (02) | DRG 291 ==
LOC: ICU 13:17
PROVIDERS: Internal Medicine Pulmonary Disease; ADMIT Student in an Organized Health Care Education/Training Program
PROC: 0BH17EZ Insertion of Endotracheal Airway into Trachea, Via Natural or Artificial Opening (ICD-10-PCS; principal; 2020-09-20)
PROC: 5A1935Z Respiratory Ventilation, Less than 24 Consecutive Hours (ICD-10-PCS; 2020-09-20)
PROC: 03HY32Z Insertion of Monitoring Device into Upper Artery, Percutaneous Approach (ICD-10-PCS; 2020-09-20)
DX: R57.0 Cardiogenic shock (principal); J96.01 Acute respiratory failure with hypoxia; I50.23 Acute on chronic systolic (congestive) heart failure; E87.4 Mixed disorder of acid-base balance; I13.0 Hypertensive heart and chronic kidney disease with heart failure and stage 1 through stage 4 chronic kidney disease, or unspecified chronic kidney disease; N17.9 Acute kidney failure, unspecified; I95.9 Hypotension, unspecified; I42.9 Cardiomyopathy, unspecified; Z20.822 Contact with and (suspected) exposure to COVID-19; E03.9 Hypothyroidism, unspecified; N18.9 Chronic kidney disease, unspecified; D63.1 Anemia in chronic kidney disease; E87.5 Hyperkalemia; N83.9 Noninflammatory disorder of ovary, fallopian tube and broad ligament, unspecified; F32.9 Major depressive disorder, single episode, unspecified; M81.0 Age-related osteoporosis without current pathological fracture; R74.8 Abnormal levels of other serum enzymes; R79.89 Other specified abnormal findings of blood chemistry; Z79.82 Long term (current) use of aspirin; Z95.818 Presence of other cardiac implants and grafts; Z85.3 Personal history of malignant neoplasm of breast; Z85.9 Personal history of malignant neoplasm, unspecified; Z92.21 Personal history of antineoplastic chemotherapy; Z85.6 Personal history of leukemia; Z88.0 Allergy status to penicillin
CPT/HCPCS: 99223-AI; J0610; J0692; J1250; J1720; J1815; J2370; J2704; J3010; J3370; J7042; J7050